=== PATIENT | male | born 1985 | race African-American/Black ===

== ENCOUNTER 2017-08-19 14:48 | Emergency (ER) | payer SELFPAY ==
[~2017-08-19] VITALS: Ht 182.9 cm; Wt 60.0 kg
[~2017-08-19 14:48] MED LIST: BACT800T5 PO
[2017-08-19 15:50] VITALS: BP 106/59; PULSE 78; RESP 18; TEMP 100.3; O2SAT 98
== END 2017-08-19 18:50 | disposition left against medical advice (07) ==
LOC: NED 14:48
DX: J11.1 Influenza due to unidentified influenza virus with other respiratory manifestations (principal)
CPT/HCPCS: 87804; 99281